=== PATIENT | female | born 1970 | race Caucasian/White ===

== ENCOUNTER 2019-03-05 13:19 | Emergency (ER) | payer MEDICAID, SELFPAY ==
[2019-03-05 13:20] VITALS: BP 123/78; PULSE 86; RESP 16; TEMP 36.2; O2SAT 98; BMI 39.1
--- NOTE | 2019-03-05 13:36 | ED.VISSUMM ---
- ER Visit Summary Date of Service: 03/05/19 Chief Complaint: [Losing voice] History of Present Illness: The patient is a 48 F [presents to the emergency department with complaint of losing her voice since yesterday. Patient denies any sore throat. Patient has had a mild cough for about 10 hours. She denies any fevers. She denies any ear pain. Denies any significant shortness of breath. Patient does have a history of COPD and emphysema. Patient continues to smoke. Patient also started a new job yesterday at [employer] which requires her to wear earplugs. She has been speaking more loudly than usual.] She denies difficulty swallowing. Physical Examination: [HEENT-PERRLA, EOMI. Cranial nerves II through XII grossly intact. TMs clear. Mucous membranes moist. No adenopathy. No pharyngeal erythema or exudates. Uvula midline. No trismus. No tenderness over the trachea. Cardiovascular-regular rate and rhythm without murmur or ectopy Lungs-clear to auscultation, chest wall stable without crepitus or subcu emphysema Abdomen-normoactive bowel sounds, soft, nontender, no rebound or rigidity, no peritoneal signs. Extremities-intact ?4, normal range of motion, normal pulses, atraumatic] Test Results: [None indicated] Emergency Department Course and Treatment: [None] Treatment Plan: [Patient advised to drink lots of fluids and use ibuprofen or Tylenol for any discomfort. I suspect patient likely has a viral laryngitis and no further treatment indicated. Patient to follow-up with primary care physician in 5 to 7 days. Patient advised to return if fever, difficulty swallowing, or condition should worsen anyway.] Disposition: [Discharged home in stable condition] Impression: [Viral laryngitis] This note was generated with iTaggedation software. It may contain incorrect words, spelling, and punctuation that were not noted in review of the chart prior to signing ED Disposition - Plan for ED Patient: Referrals: Melissa Caldwell MD [Primary Care Provider] -
--- NOTE | 2019-03-05 13:40 | ED.DCSUM_ITS ---
- ER Visit Summary Date of Service: 03/05/19 Chief Complaint: [Losing voice] History of Present Illness: The patient is a 48 F [presents to the emergency department with complaint of losing her voice since yesterday. Patient denies any sore throat. Patient has had a mild cough for about 10 hours. She denies any fevers. She denies any ear pain. Denies any significant shortness of breath. Patient does have a history of COPD and emphysema. Patient continues to smoke. Patient also started a new job yesterday at [employer] which requires her to wear earplugs. She has been speaking more loudly than usual.] She denies difficulty swallowing. Physical Examination: [HEENT-PERRLA, EOMI. Cranial nerves II through XII grossly intact. TMs clear. Mucous membranes moist. No adenopathy. No pharyngeal erythema or exudates. Uvula midline. No trismus. No tenderness over the trachea. Cardiovascular-regular rate and rhythm without murmur or ectopy Lungs-clear to auscultation, chest wall stable without crepitus or subcu emphysema Abdomen-normoactive bowel sounds, soft, nontender, no rebound or rigidity, no peritoneal signs. Extremities-intact ?4, normal range of motion, normal pulses, atraumatic] Test Results: [None indicated] Emergency Department Course and Treatment: [None] Treatment Plan: [Patient advised to drink lots of fluids and use ibuprofen or Tylenol for any discomfort. I suspect patient likely has a viral laryngitis and no further treatment indicated. Patient to follow-up with primary care physician in 5 to 7 days. Patient advised to return if fever, difficulty swallowing, or condition should worsen anyway.] Disposition: [Discharged home in stable condition] Impression: [Viral laryngitis] This note was generated with Rentmetrics[employer] software. It may contain incorrect words, spelling, and punctuation that were not noted in review of the chart prior to signing ED Disposition - Plan for ED Patient: Referrals: Melissa Caldwell MD [Primary Care Provider] -
--- NOTE | 2019-03-05 13:40 | ED.DEP ---
ED Disposition - Plan for ED Patient: Instructions: ED Laryngitis Referrals: Melissa Caldwell MD [Primary Care Provider] - 5-7 Days
== END 2019-03-05 13:59 | disposition home or self-care (01) ==
LOC: ED 13:50
PROVIDERS: Emergency Provider Emergency Medicine; Family Provider Internal Medicine; PCP Internal Medicine
DX: J04.0 Acute laryngitis (principal); J43.9 Emphysema, unspecified; E11.9 Type 2 diabetes mellitus without complications; F41.9 Anxiety disorder, unspecified; M19.90 Unspecified osteoarthritis, unspecified site; F17.200 Nicotine dependence, unspecified, uncomplicated; Z79.84 Long term (current) use of oral hypoglycemic drugs; Z79.899 Other long term (current) drug therapy
CPT/HCPCS: 99282

== ENCOUNTER 2021-08-26 14:07 | Emergency (ER) | payer MEDICAID, SELFPAY ==
[2021-08-26 14:08] VITALS: BP 160/91; PULSE 88; RESP 16; TEMP 36.7; O2SAT 94; BMI 35.6
[2021-08-26 14:46] VITALS: RESP 16
[2021-08-26 14:58] LABS: Internal QC Validated? YES +Cl - CLEAR BKGD
--- NOTE | 2021-08-26 14:58 | EX.ED.DYSGE1 ---
HPI History of Present Illness Chief Complaint: Nausea/Vomiting Narrative Narrative: Patient is a 51-year-old female with history of diabetes. She states over the past few weeks her Trulicity injection has increased in dosage. She states she will typically take this in the evening weekly as directed but then will wake up the following morning with nausea and bouts of vomiting. She also reports loose stool/diarrhea. She states the symptoms will persist for a few days after the injection and then slowly start to improve. She denies any abdominal pain fevers or chills. She denies any new exposures other than the increased Trulicity dosing. She states she is concerned she is becoming dehydrated secondary to the recurrent nature of her symptoms and therefore comes in for evaluation [facility] Medical History Diabetes Home Medications escitalopram oxalate 20 mg PO DAILY 08/09/13 [History Last Taken Unknown] mometasone-formoterol [Dulera] 2 puff INHALATION BID 08/09/13 [History Last Taken Unknown] metformin [Glucophage Xr] 1,000 mg PO BID 03/05/19 [History Last Taken Unknown] atorvastatin 40 mg PO DAILY 08/26/21 [History Last Taken Unknown] cephalexin 500 mg PO TID #21 cap 08/26/21 [Rx Last Taken Unknown] fluticasone propionate 2 spray INTRANASAL BID 08/26/21 [History Last Taken Unknown] loratadine 10 mg PO DAILY 08/26/21 [History Last Taken Unknown] meloxicam 15 mg PO DAILY 08/26/21 [History Last Taken Unknown] Allergy/AdvReac Type Severity Reaction Status Date / Time No Known Allergies Allergy Verified 08/26/21 14:10 Surgical History (Updated 08/26/21 @ 14:47 by Annabella Reeves) H/O tubal ligation Social History Smoking Status: Current every day smoker tobacco type: cigarettes ROS ROS ED Constitutional Constitutional ED: Denies chills or fever(s) ENT ENT ED: Denies sore throat Cardiovascular Cardiovascular: Denies chest pain Respiratory/Chest Respiratory/Chest: Denies cough or dyspnea Gastrointestinal Gastrointestinal: Reports diarrhea, nausea and vomiting; Denies abdominal pain Genitourinary Genitourinary ED: Denies dysuria Musculoskeletal Musculoskeletal: Denies myalgias Integumentary Denies rash Neurologic Neurologic: Denies headache(s) Hematologic/Lymphatic Hematologic/Lymphatic: Denies easy bleeding or easy bruising EXAM Physical Exam Const Vital Signs: 08/26/21 14:08 08/26/21 14:46 08/26/21 16:22 Temperature 98.0 F Temperature Source Temporal Pulse Rate 88 74 Respiratory Rate 16 16 16 Blood Pressure 160/91 H 142/85 H Blood Pressure Mean 114 104 Pulse Ox 94 95 Oxygen Delivery Method Room Air Positive well nourished and well developed General Appearance ED: well developed HEENT Reports dry mucous membranes Mouth ED: Yes dry mucous membranes Mouth: dry mucous membranes Eyes PERRL and EOMs intact bilaterally Neck supple Resp normal respiratory effort and clear to auscultation bilaterally Cardio regular rate and regular rhythm GI non-tender, non-distended and no masses GI Narrative: Abdomen is soft nontender nondistended with hyperactive bowel sounds no voluntary guarding or rigidity no pulsatile mass Palpation: soft Extremity normal to inspection Neuro oriented x3 and CN's II-XII intact bilaterally Sensorium / Orientation: alert Motor Exam: strength 5/5 throughout Psych mental status grossly normal Skin no rashes or lesions noted Skin Narrative: Skin turgor is increased MDM MDM MDM Narrative Medical decision making narrative: Patient presented ER with stable vitals and a soft nonsurgical abdomen. With her report of recurrent nausea and vomiting and physical exam showing mild dehydration changes I did elect to perform basic laboratory studies. However I did not feel there was a need for a CT scan based on her physical exam. Labs revealed no clinically significant findings such as elevated lipase is just pancreatitis electrolyte abnormality or elevation to her creatinine to suggest acute kidney injury. It did show +4 bacteria in the urine with mild contamination. As patient is a diabetic I will send the urine for culture and start her on Keflex secondary to this. However as she does not have acute kidney injury or uroseptic changes she does not need to stay in the hospital. Patient was advised to talk to her family doctor about her Trulicity as this is the most likely culprit of her recurrent symptoms but there is no need for admission at this time and patient is safe for discharge Lab Data Attestation: I reviewed the patient's lab results. Labs: Laboratory Results - last 24 hr 08/26/21 08/26/21 08/26/21 14:51 15:00 15:00 WBC 11.3 H RBC 5.45 H Hgb 14.8 Hct 46.2 MCV 84.8 MCH 27.2 MCHC 32.0 RDW Std Deviation 41.5 RDW Coeff of Roberto 13.4 Plt Count 250 MPV 9.3 Immature Gran % (Auto) 0.300 Neut % (Auto) 66.3 Lymph % (Auto) 23.8 [place] % (Auto) 6.9 Eos % (Auto) 2.5 Baso % (Auto) 0.2 Absolute Neuts (auto) 7.5 Absolute Lymphs (auto) 2.69 Nucleated RBC % 0 Sodium 140 Potassium 3.9 Chloride 105 Carbon Dioxide 30.0 Anion Gap 5 BUN 13 Creatinine 0.52 L Estim Creat Clear Calc 100.09 Est GFR (MDRD) Af Amer 160 Est GFR (MDRD) Non-Af 132 BUN/Creatinine Ratio 25.1 H Glucose 95 Calcium 9.4 Total Bilirubin 1.10 H Direct Bilirubin 0.28 AST 20 ALT 35 Alkaline Phosphatase 115 Total Protein 7.7 Albumin 3.6 Globulin 4.1 Lipase 72 L Urine Color Yellow Urine Clarity Cloudy Urine pH 6.5 Ur Specific [place] 1.015 Urine Protein Negative Urine Glucose (UA) Normal Urine Ketones 50 H Urine Occult Blood 10 H Urine Nitrite Negative Urine Bilirubin Negative Urine Urobilinogen 4 H Ur Leukocyte Esterase 100 H Urine RBC 0-5 SEEN Urine WBC 10-25 SEEN Ur Squamous Epith Cells 5-10 SEEN Urine Bacteria 4+ Urine Mucus RARE Urine Test Negative Discharge Plan Triage Chief Complaint: Nausea/Vomiting ED Provider: Surinder Ko Dx/Rx/DC Orders Clinical Impression: Adverse drug reaction, Dehydration, mild, Urinary tract infection Instructions: Urinary Tract Infections in Women, Dehydration Prescriptions: New cephalexin 500 mg capsule 500 mg PO TID Qty: 21 RF: 0 No Action Dulera 200-5 mcg/actuation Hfa Aerosol Inhaler 2 puff INHALATION BID RF: 0 escitalopram oxalate 20 MG tablet 20 mg PO DAILY RF: 0 metformin [Glucophage XR] 500 MG tablet extended release 24 hr 1,000 mg PO BID RF: 0 atorvastatin 40 mg tablet 40 mg PO DAILY RF: 0 meloxicam 15 mg tablet 15 mg PO DAILY RF: 0 fluticasone propionate 50 mcg/actuation spray,suspension 2 spray INTRANASAL BID RF: 0 loratadine 10 mg Capsule 10 mg PO DAILY RF: 0 Primary Care Provider: Melissa Caldwell Referrals: Melissa Caldwell MD [Primary Care Provider] - Activity Restrictions/Additional Instructions: Please ask your family doctor about your Trulicity as I feel this is the main cause of your symptoms Disposition Disposition: Home, Self Care
[2021-08-26 14:59] LABS: Color, Urine Yellow (Yellow); Glucose, Dipstick Normal (Normal); Ketone-Dipstick 50 mg/dl (Negative); Leukocyte Esterase-Dipstick 100 /ul (Negative); Nitrite-Dipstick Negative (Negative); Occult Blood-Urine 10 /ul (Negative); Protein-Dipstick Negative (Negative); Specific Gravity, Urine 1.015 (1.002-1.030); Urine Bilirubin Dipstick Negative (Negative); Urine Clarity Cloudy (Clear); Urine Urobilinogen 4 mg/dl (Normal); Urine pH 6.5 (5.0 - 8.0)
[2021-08-26 15:01] LABS: Pregnancy, Urine Negative Negative
[2021-08-26] MEDS: 0.9% Normal Saline 1,000 ML 999 ML IV (15:02)
[2021-08-26 15:04] LABS: Bacteria 4+ /hpf (None Seen); Red Blood Cells-Urine 0-5 SEEN /hpf (0-5); Squamous Epithelial Cells - UA 5-10 SEEN /hpf (5-10)
[2021-08-26 15:05] LABS: Mucous, Urine RARE /hpf (<or=2+); White Blood Cells 10-25 SEEN /hpf (0-5)
[2021-08-26 15:08] LABS: Absolute Lymphocyte Count 2.69 X10^3/uL (0.83-4.51); Absolute Neutrophil Count 7.5 X10^3/uL (2.0-7.7); Basophil# 0.02 X10^3/uL; Basophil% 0.2 % (0-1); Eosinophil# 0.28 X10^3/uL; Eosinophils% 2.5 % (0-5); Hematocrit 46.2 % (37-47); Hemoglobin 14.8 g/dL (12.0-15.0); Lymphocyte # 2.69 X10^3/ul (0.83-4.51); Lymphocyte % 23.8 % (19-41); Mean Corpuscular Hgb 27.2 pg (27.0-32.0); Mean Corpuscular Volume 84.8 fL (81-99); Mean Platelet Vol. 9.3 fl (6.2-12.0); Monocyte# 0.78 X10^3/uL; Monocyte% 6.9 % (0-10); NRBC Flagged by Analyzer 0 % (0-5); Neutrophil % 66.3 % (47-70); Platelet Count 250 K/mm3 (150-450); RBC Distribution Width CV 13.4 % (11.6-14.6); RBC Distribution Width SD 41.5 fl (35.1-43.9); Red Blood Count 5.45 M/mm3 (4.2-5.4); White Blood Count 11.3 K/mm3 (4.4-11.0)
[2021-08-26 15:32] LABS: AST(SGOT) 20 U/L (15-37); Alanine Aminotransfer ALT/SGPT 35 U/L (13-56); Albumin, Serum 3.6 g/dL (3.2-5.0); Alkaline Phosphatase 115 U/L (45-117); Anion Gap 5 (5-15); BUN 13 mg/dL (7-18); BUN/Creat Ratio 25.1 RATIO (10-20); Bilirubin, Direct 0.28 mg/dL (0.00-0.30); Calcium,Total 9.4 mg/dL (8.5-10.1); Chloride 105 mmol/L (98-107); Creatinine, Serum 0.52 mg/dL (0.55-1.02); EST Glomerular Filtration Rate 132 mL/min (>60); Est Glom Filt Rate - Afr Amer 160 mL/min (>60); Estimated Creatinine Clearance 100.09 ml/min; Globulin 4.1 g/dL (2.2-4.2); Glucose 95 mg/dL (74-106); Lipase 72 U/L (73-393); Potassium 3.9 mmol/L (3.5-5.1); Protein, Total 7.7 g/dL (6.4-8.2); Sodium Level 140 mmol/L (136-145)
[2021-08-26 16:22] VITALS: BP 142/85; PULSE 74; RESP 16; O2SAT 95
[2021-08-26] MEDS: Cephalexin 250 MG Capsule 500 MG PO (16:22)
[2021-08-26] MEDS: COVID-19 VAC,AD26(JANSSEN)/PF 0.5 ML SYRINGE IM (17:33)
[2021-08-26 17:39] VITALS: BP 142/85; PULSE 74; RESP 16; O2SAT 95
== END 2021-08-26 18:03 | disposition home or self-care (01) ==
PROVIDERS: Emergency Provider Emergency Medicine; PCP Internal Medicine
DX: E86.0 Dehydration (principal); R11.2 Nausea with vomiting, unspecified; N39.0 Urinary tract infection, site not specified; T50.995A Adverse effect of other drugs, medicaments and biological substances, initial encounter; F17.210 Nicotine dependence, cigarettes, uncomplicated; E11.9 Type 2 diabetes mellitus without complications; Z79.84 Long term (current) use of oral hypoglycemic drugs; Z79.899 Other long term (current) drug therapy; Z23 Encounter for immunization
CPT/HCPCS: 80048; 80076; 81001; 81025; 83690; 85025; 87077; 87086; 87088; 87186; 91303; 99285; J7030

== ENCOUNTER 2024-10-28 18:44 | Emergency (ER) | payer MEDICAID, SELFPAY ==
[2024-10-28 18:46] VITALS: BP 98/72; PULSE 75; RESP 18; TEMP 36.7; O2SAT 95; BMI 39.4
[2024-10-28 18:55] VITALS: O2SAT 95
--- NOTE | 2024-10-28 19:05 | EKG12_ITS ---
Test Reason : TRAUMA Blood Pressure : */* mmHG Vent. Rate : 71 BPM Atrial Rate : 71 BPM P-R Int : 146 ms QRS Dur : 74 ms QT Int : 400 ms P-R-T Axes : 78 46 68 degrees QTcB Int : 434 ms Normal sinus rhythm Normal ECG Confirmed by DENIS DARLING, BRIAN ([id number]), associate entertainment editor LYN VALERIO ([id number]) on 10/29/2024 8:03:56 AM Referred By: Confirmed By: BRIAN BARRIOS MD
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
[2024-10-28 19:24] LABS: Absolute Lymphocyte Count 5.15 X10^3/uL (0.83-4.51); Absolute Neutrophil Count 8.2 X10^3/uL (2.0-7.7); Basophil# 0.06 X10^3/uL; Basophil% 0.4 % (0-1); Eosinophil# 0.14 X10^3/uL; Hematocrit 51.2 % (37-47); Hemoglobin 16.5 g/dL (12.0-15.0); Lymphocyte # 5.15 X10^3/ul (0.83-4.51); Lymphocyte % 35.3 % (19-41); Mean Corp Hgb Conc 32.2 g/dL (32-36); Mean Corpuscular Hgb 27.7 pg (27.0-32.0); Mean Corpuscular Volume 85.9 fL (81-99); Mean Platelet Vol. 9.6 fl (6.2-12.0); Monocyte# 0.96 X10^3/uL; Monocyte% 6.6 % (0-10); NRBC Flagged by Analyzer 0 % (0-5); Neutrophil # 8.24 X10^3/uL (2.7-7.7); Neutrophil % 56.4 % (47-70); POSITIVE DIFFERENTIAL YES; Platelet Count 281 K/mm3 (150-450); RBC Distribution Width CV 12.9 % (11.6-14.6); RBC Distribution Width SD 40.3 fl (35.1-43.9); Red Blood Count 5.96 M/mm3 (4.2-5.4); White Blood Count 14.6 K/mm3 (4.4-11.0)
--- NOTE | 2024-10-28 19:25 | RAD_ITS ---
STUDY: X-RAY - LEFT FOOT CLINICAL: Female, 54 years old. pain TECHNIQUE: 3 view(s) of the foot. COMPARISON: None. FINDINGS: Normal talus,, and tarsal bones . Small right far calcaneal spur and posterior enthesophyte Normal visualized subtalar, talonavicular, calcaneocuboid, tarsal and tarsometatarsal articulations. Normal metatarsi. Normal metatarsophalangeal joint of the great toe. Normal tibial and fibular sesamoid bones. Normal interphalangeal joint of the great toe. Normal phalanges of the great toe. Normal second through fifth metatarsophalangeal joints. Normal interphalangeal joints and phalanges of the lesser toes. The soft tissue structures are unremarkable. RAD/Foot min 3 Views IMPRESSION: No acute fracture or other significant bony pathology. Electronically Signed: Blanco Cadet MD at 20:50 EST Reading Location ID and State: [facility] / [place] Tel , Service support ,
--- NOTE | 2024-10-28 19:25 | RAD_ITS ---
STUDY: X-RAY - LEFT ANKLE REASON FOR EXAM: Female, 54 years old. pain TECHNIQUE: 3 view(s) of the ankle. COMPARISON: None. FINDINGS: Normal visualized distal tibia and fibula. Normal medial and lateral malleoli. Normal tibiotalar articulation and ankle mortise. Normal visualized talus and calcaneus. The visualized subtalar, talonavicular, calcaneocuboid and tarsal articulations are normal. The soft tissue structures are unremarkable. RAD/Ankle min 3 Views IMPRESSION: Normal x-ray examination of the ankle. Electronically Signed: Blanco Cadet MD at 21:08 EST ,
--- NOTE | 2024-10-28 19:25 | RAD_ITS ---
STUDY: X-RAY - LEFT TIBIA AND FIBULA REASON FOR EXAM: Female, 54 years old. pain TECHNIQUE: 2 view(s) of the tibia and fibula were obtained. COMPARISON: None. FINDINGS: Normal visualized tibia. Normal visualized fibula. The soft tissue structures are unremarkable. RAD/Tibia & Fibula 2 Views IMPRESSION: Normal x-ray examination of the tibia and fibula. Electronically Signed: Blanco Cadet MD at 20:50 EST ,
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
[2024-10-28 19:26] LABS: Differential Indicated SCAN CRITERIA MET
[2024-10-28 19:29] LABS: Prothrombin Time (Protime)PT. 13.5 SECONDS (11.7-14.9)
[2024-10-28 19:30] LABS: Partial Thromboplast Time 28.3 Seconds (24.1-36.2)
[2024-10-28 19:44] VITALS: BP 115/77; PULSE 78; RESP 16; O2SAT 95
[2024-10-28] MEDS: 0.9% Normal Saline (1000mL) 1,000 ML 999 ML IV (19:48)
[2024-10-28] MEDS: Diphth,Pertuss(Acell),Tet Vac 0.5 ML Vial IM (19:48)
[2024-10-28 19:57] LABS: Atypical Lymphocyte 1+ %; Platelet Estimate ADEQUATE (ADEQ); Red Cell Morphology NORM C+C NORMAL (NORM C&C)
[2024-10-28 19:58] LABS: Anisocytosis RARE
[2024-10-28 20:02] LABS: AST(SGOT) 19 U/L (15-37); Alanine Aminotransfer ALT/SGPT 24 U/L (13-56); Alkaline Phosphatase 146 U/L (45-117); Anion Gap 4 (5-15); BUN 15 mg/dL (7-18); BUN/Creat Ratio 18.4 RATIO (10-20); Bilirubin, Direct 0.21 mg/dL (0.00-0.30); Calcium,Total 9.4 mg/dL (8.5-10.1); Chloride 103 mmol/L (98-107); Creatinine, Serum 0.81 mg/dL (0.55-1.02); EST Glomerular Filtration Rate 77 mL/min (>60); Est Glom Filt Rate - Afr Amer 94 mL/min (>60); Estimated Creatinine Clearance 85.65 ml/min; Globulin 3.9 g/dL (2.2-4.2); Glucose 119 mg/dL (74-106); Potassium 3.7 mmol/L (3.5-5.1); Protein, Total 7.9 g/dL (6.4-8.2); Sodium Level 137 mmol/L (136-145)
[2024-10-28 20:22] LABS: Red Blood Cells-Urine 0 SEEN /hpf (0-5)
[2024-10-28 20:27] LABS: Color, Urine Amber (Yellow); Glucose, Dipstick Normal (Normal); Ketone-Dipstick Negative (Negative); Leukocyte Esterase-Dipstick 25 /ul (Negative); Nitrite-Dipstick Positive (Negative); Occult Blood-Urine Negative /ul (Negative); Protein-Dipstick 15 mg/dl (Negative); Urine Bilirubin Dipstick Negative (Negative); Urine Clarity Clear (Clear); Urine Urobilinogen 1 mg/dl (Normal)
[2024-10-28 20:34] LABS: Bacteria 3+ /hpf (None Seen); Mucous, Urine 2+ /hpf (<or=2+); Squamous Epithelial Cells - UA 5-10 SEEN /hpf (5-10); White Blood Cells 10-25 SEEN /hpf (0-5)
[2024-10-28 21:00] VITALS: BP 123/76; PULSE 72; RESP 18; O2SAT 99
[2024-10-28] MEDS: Acetaminophen 500 MG Tablet 1000 MG PO (21:15)
[2024-10-28] MEDS: Ketorolac 15 MG/ML Vial IV (21:15)
[2024-10-28 22:00] VITALS: BP 109/75; PULSE 66; RESP 18; O2SAT 93
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
[2024-10-28 22:49] VITALS: BP 118/78; PULSE 68; RESP 18; TEMP 36.8; O2SAT 99
--- NOTE | 2024-10-29 17:26 | ED.RN ---
ON PTS CHART FOR DME
== END 2024-10-28 23:26 | disposition home or self-care (01) ==
PROVIDERS: Emergency Provider Emergency Medicine; PCP Internal Medicine; Visit Provider Emergency Medicine
DX: M79.605 Pain in left leg (principal); E11.9 Type 2 diabetes mellitus without complications; S80.812A Abrasion, left lower leg, initial encounter; B96.20 Unspecified Escherichia coli [E. coli] as the cause of diseases classified elsewhere; F17.210 Nicotine dependence, cigarettes, uncomplicated; Z23 Encounter for immunization; X58.XXXA Exposure to other specified factors, initial encounter
CPT/HCPCS: 70450; 71260; 72125; 73562; 73590; 73610; 73630; 74177; 80048; 80076; 81001; 85025; 85610; 85730; 86850; 86900; 86901; 87077; 87086; 87088; 87186; 90471; 93005; 96361; 96374; 96376; 99285; Q9967; A4216